=== PATIENT | female | born 1950 | race Caucasian/White ===

== ENCOUNTER 2016-06-28 06:21 | Observation (INO) | payer OTHER ==
[2016-06-28] MEDS ORDERED: NS 1,000 ML IV ONE (06:35)
--- NOTE | 2016-06-28 06:39 | CPEKG ---
Heart Rate: 85 RR Interval: 706 P-R Interval: 164 QRSD Interval: 80 QT Interval: 360 QTC Interval: 428 P [place]: 54 QRS [place]: 48 T Wave [place]: 33 EKG Severity - BORDERLINE ECG - EKG Impression: SINUS RHYTHM EKG Impression: PROMINENT P WAVES, NONDIAGNOSTIC Electronically Signed By: Park English 28-Jun-2016 15:22:34
[2016-06-28 06:50] LABS: % IMMATURE GRANULYOCYTES 0.5 % (0.0-1.1); ABSOLUTE IMMATURE GRANULOCYTES 0.05 10^3/uL (0.00-0.10); ADD DIFF? NO; ADD MORPH? NO; ADD SCAN? NO; ATYPICAL LYMPHOCYTE FLAG 0 (0-99); FRAGMENT RBC FLAG 0 (0-99); HEMATOCRIT 41.9 % (38.0-47.0); HEMOGLOBIN 14.2 g/dL (12.6-16.3); LEFT SHIFT FLG 0 (0-99); LIPEMIA HEMOLYSIS FLAG 90 (0-99); MEAN CELL HEMOGLOBIN 30.5 pg (27.9-34.1); MEAN CELL HEMOGLOBIN CONCENTR. 33.9 g/dL (32.4-36.7); MEAN CELL VOLUME 90.1 fL (81.5-99.8); MEAN PLATELET VOLUME 9.9 fL (8.7-11.7); PLATELET CLUMPS FLAG 0 (0-99); PLATELET COUNT 349 10^3/uL (150-400); RED BLOOD CELL COUNT 4.65 10^6/uL (4.18-5.33)
[2016-06-28 07:04] LABS: ANION GAP 8 mEq/L (8-16); CARBON DIOXIDE 27 mEq/l (22-31); CHLORIDE 105 mEq/L (97-110); CREATININE 0.8 mg/dL (0.6-1.0); GLOMERULAR FILTRATION RATE > 60; GLUCOSE 115 mg/dL (70-100); SODIUM 140 mEq/L (134-144)
--- NOTE | 2016-06-28 07:15 | EDPHY ---
H & P Time Seen by Provider: 06/28/16 07:02 HPI/ROS: CHIEF COMPLAINT: Chest tightness. HISTORY OF PRESENT ILLNESS: The patient is a 65-year-old female with a recent history of pacemaker placement 04/29/16 who presents with chest tightness that began yesterday morning. This tightness has been intermittent and radiates to her throat. It is worsened with lying flat. Her daughter has treated her with Tums and Tylenol to little effect. She had an episode of similar symptoms two days after her pacemaker placement that was improved with GI cocktail. According to the daughter, cardiac enzymes negative during hospitalization. Not taking GI meds. History from the patient is limited due to her history of prior stroke. This history was obtained mostly from her daughter. REVIEW OF SYSTEMS: A complete 10-point review of systems was performed and is negative except for those items mentioned in the HPI. Past Medical/Surgical History: Pacemaker, CVA, dementia, ankle fracture, TIAs. Social History: Recently moved to [place]. Smoking Status: Light smoker Physical Exam: General Appearance: Alert, pleasant Eyes: Pupils equal and round, no conjunctival pallor or injection ENT, Mouth: Mucous membranes moist Neck: Normal inspection Respiratory: Lungs are clear to auscultation Cardiovascular: Regular rate and rhythm Gastrointestinal: Abdomen is soft and non-tender Neurological: A&O, nonfocal exam Skin: Warm and dry, no rash Extremities: Nontender, no pedal edema Psychiatric: Mood and affect normal Constitutional: Initial Vital Signs Temperature (C) 36.9 C 06/28/16 06:22 Heart Rate 96 06/28/16 06:22 Respiratory Rate 18 06/28/16 06:22 Blood Pressure 93/70 L 06/28/16 06:22 O2 Sat (%) 97 06/28/16 06:22 O2 Delivery Mode Room Air O2 (L/minute) 2 Allergies/Adverse Reactions: codeine Allergy (Verified 06/28/16 06:29) Home Medications: Medication Instructions Recorded Aspirin [Aspirin 81mg (*)] 81 mg PO DAILY 06/28/16 Metoprolol Succinate 25 mg PO 06/28/16 Medical Decision Making - Diagnostics EKG Interpretation: EKG interpreted by me reveals normal sinus rhythm, normal axis, normal intervals , ST and T segments normal. Interpretation: normal EKG Imaging Results: Imaging Impressions Chest X-Ray 06/28/16 06:36 Impression: Borderline cardiac enlargement. The chest is negative for acute cardiopulmonary abnormality. Imaging: I viewed and interpreted images myself ED Course/Re-evaluation: This patient presents with intermittent chest pain the past 36 hours. History taking is limited because cognitive challenges related to prior CVA and to dementia. GI vs cardiac etiology. Stat EKG reveals no evidence of ischemia or dysrhythmia. An IV was established and labs ordered. Chest x-ray, EKG ordered. 40mg PO Protonix and GI cocktail administered for chest pain. Plan for admission for this patient to the hospitalist service for observation and further chest pain workup. Chest x-ray interpreted by me is negative for acute cardiopulmonary disease. See Imaging Results section for official radiologist report. EKG is negative for ischemic changes. 0746: Consulted with Meredith Brennan, hospitalist. She accepts admission for Dr. Brenner to [facility]. Laboratory studies including cardiac enzymes are unremarkable for acute abnormality. Differential Diagnosis: Differential diagnosis includes though it is not limited to pneumonia, pneumothorax, pulmonary embolism, aortic dissection, pericarditis, acute coronary syndrome. - Data Points Laboratory Results: Laboratory Results 06/28/16 06:38 06/28/16 06:38 06/28/16 06/28/16 06:38 06:38 WBC 9.87 10^3/uL H 10^3/uL (3.80-9.50) RBC 4.65 10^6/uL 10^6/uL (4.18-5.33) Hgb 14.2 g/dL g/dL (12.6-16.3) Hct 41.9 % % (38.0-47.0) MCV 90.1 fL fL (81.5-99.8) MCH 30.5 pg pg (27.9-34.1) MCHC 33.9 g/dL g/dL (32.4-36.7) RDW 13.0 % % (11.5-15.2) Plt Count 349 10^3/uL 10^3/uL (150-400) MPV 9.9 fL fL (8.7-11.7) Neut % (Auto) 62.9 % % (39.3-74.2) Lymph % (Auto) 18.8 % % (15.0-45.0) [place] % (Auto) 16.1 % H % (4.5-13.0) Eos % (Auto) 1.0 % % (0.6-7.6) Baso % (Auto) 0.7 % % (0.3-1.7) Nucleat RBC Rel Count 0.0 % % (0.0-0.2) Absolute Neuts (auto) 6.20 10^3/uL 10^3/uL (1.70-6.50) Absolute Lymphs (auto) 1.86 10^3/uL 10^3/uL (1.00-3.00) Absolute Monos (auto) 1.59 10^3/uL H 10^3/uL (0.30-0.80) Absolute Eos (auto) 0.10 10^3/uL 10^3/uL (0.03-0.40) Absolute Basos (auto) 0.07 10^3/uL 10^3/uL (0.02-0.10) Absolute Nucleated RBC 0.00 10^3/uL 10^3/uL (0-0.01) Immature Gran % 0.5 % % (0.0-1.1) Immature Gran # 0.05 10^3/uL 10^3/uL (0.00-0.10) Sodium 140 mEq/L mEq/L (134-144) Potassium 4.0 mEq/L mEq/L (3.5-5.2) Chloride 105 mEq/L mEq/L (97-110) Carbon Dioxide 27 mEq/l mEq/l (22-31) Anion Gap 8 mEq/L mEq/L (8-16) BUN 17 mg/dL mg/dL (7-23) Creatinine 0.8 mg/dL mg/dL (0.6-1.0) Estimated GFR > 60 Glucose 115 mg/dL H mg/dL (70-100) Calcium 10.0 mg/dL mg/dL (8.5-10.4) Creatine Kinase 30 IU/L IU/L (0-156) CK-MB (CK-2) Fraction < 0.22 ng/mL ng/mL (0-3.19) Troponin I < 0.012 ng/mL ng/mL (0-0.034) Medications Given: Discontinued Medications Al Hydroxide/Mg Hydroxide (Maalox Susp) 30 ml PO ONCE ONE Stop: 06/28/16 07:44 Last Admin: 06/28/16 07:57 Dose: 30 ml Hyoscyamine Sulfate (Levsin, Hyomax-Sl) 0.25 mg PO ONCE ONE Stop: 06/28/16 07:44 Last Admin: 06/28/16 07:57 Dose: 0.25 mg Sodium Chloride (Ns) 1,000 mls @ 0 mls/hr IV ONCE ONE PRN Reason: Wide Open Stop: 06/28/16 06:36 Last Admin: 06/28/16 06:35 Dose: 1,000 mls Lidocaine (Lidocaine 2% Viscous) 15 ml PO ONCE ONE Stop: 06/28/16 07:44 Last Admin: 06/28/16 07:57 Dose: 15 ml Pantoprazole Sodium (Protonix) 40 mg PO EDNOW ONE Stop: 06/28/16 07:44 Last Admin: 06/28/16 07:57 Dose: 40 mg Departure - Departure Disposition: [facility] Inpatient Acute Clinical Impression: Chest pain Qualifiers: Chest pain type: unspecified Qualified Code(s): R07.9 - Chest pain, unspecified Condition: Fair Report Scribed for: Park English Report Scribed by: Trevor Albrecht Date of Report: 06/28/16 Time of Report: 07:05 Physician Review and Approval Statement: 06/28/16 07:05 Portions of this note were transcribed by a medical services coordinator. I personally performed a history, physical exam, medical decision making, and confirmed accuracy of information the transcribed note.
[2016-06-28 07:16] LABS: TROPONIN I < 0.012 ng/mL (0-0.034)
[2016-06-28 07:23] LABS: CREATINE KINASE-MB FRACTION < 0.22 ng/mL (0-3.19)
[2016-06-28] MEDS ORDERED: LIDOCAINE 2% VISCOUS 15 ML UDCUP PO ONE (07:43)
[2016-06-28] MEDS ORDERED: HYOSCYAMINE SULFATE 0.125 MG TAB PO ONE (07:43)
[2016-06-28] MEDS ORDERED: PANTOPRAZOLE SODIUM 40 MG TAB PO ONE (07:43)
[2016-06-28] MEDS ORDERED: MAG HYDROX/AL HYDROX/SIMETH 30 ML UDCUP PO ONE (07:43)
[2016-06-28] MEDS ORDERED: ACETAMINOPHEN 325 MG TAB PO PRN (09:11)
[2016-06-28] MEDS ORDERED: ONDANSETRON DISINTEGRATING 4 MG TAB PO PRN (09:11)
[2016-06-28] MEDS ORDERED: REGADENOSON 0.4 MG/5 ML SYR IVP ONE (10:46)
--- NOTE | 2016-06-28 11:53 | CPR ---
[f rep st] NONINVASIVE CARDIAC PROCEDURE REPORT DATE OF PROCEDURE: 06/28/2016 PROCEDURE: Lexiscan stress test. REASON FOR TEST: Chest pain. She has a permanent pacemaker that was placed in April. She has a hi story of Alzheimer's. Resting EKG shows a regular sinus rhythm with no ischemic changes. Resting heart rate 73, resting b lood pressure 90/60, oxygen saturation 97%. She has mild chest pressure. No ischemic changes on EK G. Lexiscan was injected rapidly, followed by a saline flush. Cardiolite was then injected, followed b y a saline flush per protocol. She did develop chest heaviness and nausea. Blood pressure 96/60, h eart rate peaked at 109, oxygen saturation 99%. There were no EKG changes during the stress portion . Recovery: She spontaneously recovered with no EKG changes. Blood pressure at recovery 110/64, hear t rate 84, oxygen saturation 99. She was given caffeine. She had mild chest pressure at conclusion of test. At this time, she currently is stable for nuclear imaging. /[id number]/MODL
[2016-06-28 12:12] VITALS: RESP 16; O2SAT 94
--- NOTE | 2016-06-28 14:12 | PDGENHP ---
History and Physical - Chief Complaint Acute chest pain - History of Present Illness Primary care provider: Dr. Escobedo HPI: 65-year-old female presenting with acute chest pain characterized as chest tightness and pressure sensation located over her anterior chest with radiation into the throat and intermittent nausea. Onset of symptoms 1 day prior and duration has been persistent thereafter. Symptoms were not alleviated by Tylenol or Tums. They are exacerbated by lying supine, alleviated by GI cocktail received emergency department. The patient has had similar symptoms in the past and these have been alleviated by GI cocktails as well as Tums. The family became concerned when the symptoms were not alleviated with Tums and Tylenol. It should also be noted that the patient has recently had many of her home medications de escalated after she experienced a left ankle traumatic fracture requiring repair and attempts were made to streamline her medications. History Information - Allergies/Home Medication List Allergies/Adverse Reactions: codeine Allergy (Verified 06/28/16 06:29) Home Medications: Acetaminophen [Tylenol 325mg (*)] 325 - 650 mg PO Q6 PRN 06/28/16 [Last Taken ] Aspirin EC [Aspirin EC 81 mg (*)] 81 mg PO DAILY 06/28/16 [Last Taken 06/27/16] Calcium Carbonate [Tums 500MG (*)] 500 - 1,500 mg PO PRN PRN 06/28/16 [Last Taken Unknown] Herbals/Supplements -Info Only 1 ea PO DAILY 06/28/16 [Last Taken Unknown] Metoprolol Tartrate [Lopressor 25 mg (*)] 25 mg PO BID 06/28/16 [Last Taken 06/10] I have personally reviewed and updated: family history, medical history, social history, surgical history - Past Medical History CVA (Unclear whether this was true CVA versus seizure, resulted in loss of consciousness; daughter reports that her 1st stroke was at age 40 but it is unclear what the exact symptoms or presentation were lysed) Additional medical history: Traumatic left ankle fracture. Heart block requiring pacemaker. Moderate dementia - Surgical History Additional surgical history: Recent left ankle surgery. Permanent pacemaker 04/29 - Family History Additional family history: No family history of GI malignancy - Social History Smoking Status: Light smoker Alcohol Use: Occasionally Drug Use: None Additional social history: Previously living independently in splitting time with her partner in [place] and [place], [place], currently residing with her daughter and arrangements are being made for her to remain locally Review of Systems ROS: 10pt was reviewed & negative except for what was stated in HPI & below Cardiac: Reports: chest pain Gastrointestinal: Reports: nausea Physical Exam Temp Pulse Resp BP Pulse Ox 36.2 C 81 16 125/66 H 94 06/28/16 12:00 06/28/16 12:00 06/28/16 12:00 06/28/16 12:00 06/28/16 12:00 O2 (L/minute) 2 Constitutional: no apparent distress, appears nourished, not in pain, uncomfortable Eyes: PERRL, anicteric sclera, EOMI Ears, Nose, Mouth, Throat: moist mucous membranes, hearing normal, ears appear normal, no oral mucosal ulcers Cardiovascular: regular rate and rhythym, no murmur, rub, or gallop, No edema Respiratory: no respiratory distress, no rales or rhonchi, clear to auscultation Gastrointestinal: normoactive bowel sounds, soft, non-tender abdomen, no palpable masses Skin: other (No tenderness or erythema over the left anterior chest surgical site) Musculoskeletal: other (Range of motion of the neck without any pain, no tenderness to palpation over the bilateral sternocleidomastoid, full range of motion bilateral shoulders without pain, full range of motion of the left ankle , mild effusion around the left ankle) Neurologic: No weakness, No facial droop Psychiatric: anxious, poor insight, poor judgement, poor memory, No agitated Lab Data & Imaging Review 06/28/16 06:38 06/28/16 06:38 WBC 9.87 10^3/uL (3.80-9.50) H 06/28/16 06:38 RBC 4.65 10^6/uL (4.18-5.33) 06/28/16 06:38 Hgb 14.2 g/dL (12.6-16.3) 06/28/16 06:38 Hct 41.9 % (38.0-47.0) 06/28/16 06:38 MCV 90.1 fL (81.5-99.8) 06/28/16 06:38 MCH 30.5 pg (27.9-34.1) 06/28/16 06:38 MCHC 33.9 g/dL (32.4-36.7) 06/28/16 06:38 RDW 13.0 % (11.5-15.2) 06/28/16 06:38 Plt Count 349 10^3/uL (150-400) 06/28/16 06:38 MPV 9.9 fL (8.7-11.7) 06/28/16 06:38 Neut % (Auto) 62.9 % (39.3-74.2) 06/28/16 06:38 Lymph % (Auto) 18.8 % (15.0-45.0) 06/28/16 06:38 [place] % (Auto) 16.1 % (4.5-13.0) H 06/28/16 06:38 Eos % (Auto) 1.0 % (0.6-7.6) 06/28/16 06:38 Baso % (Auto) 0.7 % (0.3-1.7) 06/28/16 06:38 Nucleat RBC Rel Count 0.0 % (0.0-0.2) 06/28/16 06:38 Absolute Neuts (auto) 6.20 10^3/uL (1.70-6.50) 06/28/16 06:38 Absolute Lymphs (auto) 1.86 10^3/uL (1.00-3.00) 06/28/16 06:38 Absolute Monos (auto) 1.59 10^3/uL (0.30-0.80) H 06/28/16 06:38 Absolute Eos (auto) 0.10 10^3/uL (0.03-0.40) 06/28/16 06:38 Absolute Basos (auto) 0.07 10^3/uL (0.02-0.10) 06/28/16 06:38 Absolute Nucleated RBC 0.00 10^3/uL (0-0.01) 06/28/16 06:38 Immature Gran % 0.5 % (0.0-1.1) 06/28/16 06:38 Immature Gran # 0.05 10^3/uL (0.00-0.10) 06/28/16 06:38 D-Dimer 0.61 ug/mLFEU (0.00-0.50) H 06/28/16 06:40 Sodium 140 mEq/L (134-144) 06/28/16 06:38 Potassium 4.0 mEq/L (3.5-5.2) 06/28/16 06:38 Chloride 105 mEq/L (97-110) 06/28/16 06:38 Carbon Dioxide 27 mEq/l (22-31) 06/28/16 06:38 Anion Gap 8 mEq/L (8-16) 06/28/16 06:38 BUN 17 mg/dL (7-23) 06/28/16 06:38 Creatinine 0.8 mg/dL (0.6-1.0) 06/28/16 06:38 Estimated GFR > 60 06/28/16 06:38 Glucose 115 mg/dL (70-100) H 06/28/16 06:38 Calcium 10.0 mg/dL (8.5-10.4) 06/28/16 06:38 Creatine Kinase 30 IU/L (0-156) 06/28/16 06:38 CK-MB (CK-2) Fraction < 0.22 ng/mL (0-3.19) 06/28/16 06:38 Troponin I < 0.012 ng/mL (0-0.034) 06/28/16 06:38 Visualized and Interpreted Chest x-ray results: Yes Chest X-Ray results: no infiltrate Visualized and Interpreted EKG results: Yes EKG Interpretation: Positive for: other (Normal sinus rhythm) Assessment & Plan Assessment: 65-year-old female presenting with acute chest pain in the setting of suspected GERD Plan: 1. Chest pain. Acute, new problem this provider, further workup indicated. Potential etiologies include GERD versus obstructive coronary disease -interrogate permanent pacemaker -get nuclear adenosine stress test 2. Dementia. Chronically encephalopathic, poor insight and memory at baseline, patient is difficult time understanding her symptoms and understanding explanations regarding treatment 3. GERD. Suspect chronic condition, patient recently discontinued proton pump inhibitor without experiencing any over complications -reinitiate PPI -as needed GI cocktail -as needed H2 mari -as needed times I discussed patient's presentation with Meredith Brennan, hospitalist provider, she has assigned the patient to me for evaluation.
[2016-06-28 14:29] VITALS: BP 118/78; PULSE 71; TEMP 97.3
== END 2016-06-28 14:36 | disposition home or self-care (01) ==
LOC: F1N 08:26
PROVIDERS: ADMIT Internal Medicine; ATTEND Internal Medicine
DX: R07.9 Chest pain, unspecified (principal); F03.90 Unspecified dementia, unspecified severity, without behavioral disturbance, psychotic disturbance, mood disturbance, and anxiety; K21.9 Gastro-esophageal reflux disease without esophagitis; Z95.0 Presence of cardiac pacemaker
CPT/HCPCS: 78452; 93005; 93017; 96360; 99285; G0378; J2785

== ENCOUNTER → 2016-07-01 | Outpatient (CLI) | payer OTHER | LOC: BMCIMAGING 14:53 | PROVIDERS: ATTEND Podiatrist Foot & Ankle Surgery | DX: Z09 Encounter for follow-up examination after completed treatment for conditions other than malignant neoplasm (principal) ==

== ENCOUNTER → 2016-07-31 | Outpatient (CLI) | payer OTHER | LOC: BMCIMAGING 11:08 | PROVIDERS: ATTEND Podiatrist Foot & Ankle Surgery | DX: S82.832D Other fracture of upper and lower end of left fibula, subsequent encounter for closed fracture with routine healing (principal); S82.52XD Displaced fracture of medial malleolus of left tibia, subsequent encounter for closed fracture with routine healing ==